=== PATIENT | male | born 1950 | race Caucasian/White ===

== ENCOUNTER 2018-06-21 20:45 | Emergency (ER) | payer MEDICARE ==
[2018-06-22] MEDS: NORCO 5/325MG TABLET (BULK FOR ED) PO (02:17)
[2018-06-22] MEDS: AUGMENTIN 875 MG TAB PO (02:17)
[2018-06-22] MEDS: TETANUS/DIPHTHERIA TOX ADSORB ADULT 0.5ML SYR/VIAL (90714) IM (02:18)
== END 2018-06-22 02:47 | disposition home or self-care (01) ==
LOC: M ED 20:45
DX: S60.457A Superficial foreign body of left little finger, initial encounter (principal); W45.8XXA Other foreign body or object entering through skin, initial encounter; Y92.9 Unspecified place or not applicable; Y93.9 Activity, unspecified; Y99.9 Unspecified external cause status; I10 Essential (primary) hypertension; Z79.899 Other long term (current) drug therapy; Z88.2 Allergy status to sulfonamides
CPT/HCPCS: 90714